=== PATIENT | female | born 1970 ===

== ENCOUNTER 2016-07-19 16:47 | Emergency (ER) | payer MEDICAID ==
[2016-07-19 17:17] VITALS: RESP 18; TEMP 98.3; O2SAT 98
[2016-07-19] MEDS ORDERED: Tmp-Smz 800 mg-160 mg DS Tab PO STA (18:55)
[2016-07-19] MEDS ORDERED: Lidocaine 2% Inj (20ml) INFIL ONE (18:55)
--- NOTE | 2016-07-19 18:55 | C.PDOC ---
History Of Present Illness 46 y/o female presents to the ED with complains of painful swollen area to mid back for the past several days. Pt saw PMD who prescribed penicillin and motrin without relief. Pt denies fever, chills, neck pain or any other complaints. No known allergies. Time Seen by Provider: 07/19/16 18:09 Chief Complaint (Nursing): Abnormal Skin Integrity History Per: Patient Onset/Duration Of Symptoms: Days Current Symptoms Are (Timing): Still Present Location Of Injury: Posterior: Back Quality Of Symptoms: Painful, Swollen Severity: Moderate Recent travel outside of the [place]: No Past Medical History Reviewed: Historical Data, Nursing Documentation, Vital Signs Vital Signs: Last Vital Signs Temp 98.3 F 07/19/16 17:13 Pulse 85 07/19/16 20:27 Resp 18 07/19/16 20:27 BP 128/72 07/19/16 20:27 Pulse Ox 98 07/19/16 20:27 - Medical History PMH: Arthritis, Hypercholesterolemia - [facility] Procedures OTHER SKIN & SUBQ I D (10/02/12) TETANUS TOXOID ADMINIST (10/02/12) Family History: States: Unknown Family Hx - Social History Hx Tobacco Use: No Hx Alcohol Use: No Hx Substance Use: No - Immunization History Hx Tetanus Toxoid Vaccination: No Hx Influenza Vaccination: No Hx Pneumococcal Vaccination: No Review Of Systems Except As Marked, All Systems Reviewed And Found Negative. Constitutional: Negative for: Fever, Chills Musculoskeletal: Negative for: Neck Pain Skin: Positive for: Other (painful, swollen area to mid back) Physical Exam - Physical Exam Appears: Non-toxic, No Acute Distress Skin: Warm, Dry, No Rash, Other (2x1 cm area of swelling and erythema to left thoracic back, fluctuant. ) Head: Atraumatic, Normacephalic Eye(s): bilateral: Normal Inspection Oral Mucosa: Moist Neck: Normal ROM, Supple Cardiovascular: Rhythm Regular Respiratory: Normal Breath Sounds, No Rales, No Rhonchi, No Wheezing Back: No Vertebral Tenderness, No Paraspinal Tenderness Extremity: Bilateral: Atraumatic Neurological/Psych: Oriented x3, Normal Motor, Normal Sensation Gait: Steady ED Course And Treatment O2 Sat by Pulse Oximetry: 98 (on room air) Pulse Ox Interpretation: Normal - Incision & Drainage Of Abscess Anesthesia: Lidocaine 2% Prep Used: Sterile Water Procedure: Incised W/Scalpel Blade#: (11), Drained Pus, Irrigated Cavity W/ Saline, Probed To Break Up Loculations, Packed W/Gauze Disposition - Disposition Referrals: Shaik Kolb MD [Staff Provider] - Disposition: HOME/ ROUTINE Disposition Time: 20:09 Condition: GOOD Additional Instructions: Come to the ED in 2 days for wound check and packing removal. Prescriptions: Sulfamethoxazole/Trimethoprim [Bactrim DS 800 mg-160 mg] 1 tab PO BID #14 tab Instructions: Abscess (GEN) - Clinical Impression Clinical Impression: Abscess - PA / INSTRUMENT CHECKER / Resident Statement MD/DO has reviewed & agrees with the documentation as recorded. - Scribe Statement The provider has reviewed the documentation as recorded by the Scribjo Chopra All medical record entries made by the Scribe were at my direction and personally dictated by me. I have reviewed the chart and agree that the record accurately reflects my personal performance of the history, physical exam, medical decision making, and the department course for this patient. I have also personally directed, reviewed, and agree with the discharge instructions and disposition.
[2016-07-19] MEDS ORDERED: Lidocaine 2% Inj (20ml) ONE (19:13)
[2016-07-19] MEDS ORDERED: Tmp-Smz 800 mg-160 mg DS Tab ONE (19:50)
[2016-07-19 20:28] VITALS: BP 128/72; PULSE 85
== END 2016-07-19 20:28 | disposition home or self-care (01) ==
LOC: C.ER 16:47
DX: L02.212 Cutaneous abscess of back [any part, except buttock and flank] (principal)

== ENCOUNTER 2016-07-21 08:04 | Emergency (ER) | payer MEDICAID ==
[2016-07-21 08:10] VITALS: BP 105/72; PULSE 101; RESP 18; TEMP 98; O2SAT 99
--- NOTE | 2016-07-21 10:46 | C.PDOC ---
History Of Present Illness 46 yr old female presents to the ER s/o I&D of an abscess to the thoracic T6 region 2 days ago. Packing was placed, PO antibiotics were given and patient was instructed to follow up win 2 days for wound check. Patient denies drainage or sign of infections from the site, denies fever, nausea, vomiting, weakness or numbness. Time Seen by Provider: 07/21/16 08:15 Chief Complaint (Nursing): Abnormal Skin Integrity History Per: Patient History/Exam Limitations: no limitations Onset/Duration Of Symptoms: Days (2) Past Medical History Reviewed: Historical Data, Nursing Documentation, Vital Signs Vital Signs: Last Vital Signs Temp 98 F 07/21/16 08:08 Pulse 101 H 07/21/16 08:08 Resp 18 07/21/16 08:08 BP 105/72 07/21/16 08:08 Pulse Ox 99 07/21/16 10:49 - Medical History PMH: Arthritis, Hypercholesterolemia - [facility] Procedures OTHER SKIN & SUBQ I D (10/02/12) TETANUS TOXOID ADMINIST (10/02/12) Family History: States: No Known Family Hx - Social History Hx Tobacco Use: No Hx Alcohol Use: No Hx Substance Use: No - Immunization History Hx Tetanus Toxoid Vaccination: No Hx Influenza Vaccination: No Hx Pneumococcal Vaccination: No Review Of Systems Except As Marked, All Systems Reviewed And Found Negative. Constitutional: Negative for: Fever Gastrointestinal: Negative for: Nausea, Vomiting Neurological: Negative for: Weakness, Numbness Physical Exam - Physical Exam Appears: Well, Non-toxic, No Acute Distress Skin: Warm, Dry, No Rash Head: Atraumatic, Normacephalic Oral Mucosa: Moist Throat: Normal, No Erythema, No Exudate Chest: Symmetrical, No Tenderness Cardiovascular: Rhythm Regular, No Murmur Respiratory: Normal Breath Sounds, No Rales, No Rhonchi, No Wheezing Extremity: Normal ROM, No Swelling Neurological/Psych: Oriented x3, Normal Speech, Normal Motor ED Course And Treatment O2 Sat by Pulse Oximetry: 99 Progress Note: Packing was removed. Wound looks clean and well healing and bandage was placed. Patient is instructed to follow up with PMD in 2-3 days for check up. Disposition - Disposition Referrals: Marizol Levine, [Non-Staff] - Disposition: HOME/ ROUTINE Disposition Time: 08:20 Condition: GOOD Additional Instructions: Thank you for letting us take care of you today. Your provider was Dr. Hermosillo. You were treated for a wound check. The emergency medical care you received today was directed at your acute symptoms. If you were prescribed any medication, please fill it and take as directed. It may take several days for your symptoms to resolve. Return to the Emergency Department if your symptoms worsen, do not improve, or if you have any other problems. Please contact your doctor or call one of the physicians/clinics you have been referred to that are listed on the Patient Visit Information form that is included in your discharge packet. Bring any paperwork you were given at discharge with you along with any medications you are taking to your follow up visit. Our treatment cannot replace ongoing medical care by a primary care provider (PCP) outside of the emergency department. Thank you for allowing the [facility] team to be part of your care today. Keep area clean and dry at all times. Continue taking the antibiotics as prescribed. Follow up with your doctor in 2-3 days to be re-evaluated. Instructions: Abscess (ED) - Clinical Impression Clinical Impression: Abscess - Scribe Statement The provider has reviewed the documentation as recorded by the Nixonibe Marlee Mcclendon Provider Attestation: All medical record entries made by the Cain were at my direction and personally dictated by me. I have reviewed the chart and agree that the record accurately reflects my personal performance of the history, physical exam, medical decision making, and the department course for this patient. I have also personally directed, reviewed, and agree with the discharge instructions and disposition.
== END 2016-07-21 08:31 | disposition home or self-care (01) ==
LOC: C.ER 08:04
DX: Z48.00 Encounter for change or removal of nonsurgical wound dressing (principal)

== ENCOUNTER 2017-07-17 18:06 | Emergency (ER) | payer MEDICAID ==
[2017-07-17 18:30] VITALS: BP 117/78; PULSE 65; RESP 18; TEMP 98; O2SAT 100
[2017-07-17] MEDS ORDERED: Lidocaine 1% Inj (20ml) INFIL STA (19:21)
[2017-07-17] MEDS ORDERED: Tmp-Smz 800 mg-160 mg DS Tab PO STA (19:21)
--- NOTE | 2017-07-17 19:24 | C.PDOC ---
History Of Present Illness 47 year old female presents to the ED with complains of painful swollen area to mid back for the past week. She had similar mass one year ago which needed drainage. Patient denies fever, chills, neck pain or any other complaints. No known allergies. Time Seen by Provider: 07/17/17 19:19 Chief Complaint (Nursing): Abnormal Skin Integrity History Per: Patient History/Exam Limitations: no limitations Onset/Duration Of Symptoms: Days Current Symptoms Are (Timing): Still Present Location Of Injury: Left: Back Quality Of Symptoms: Painful, Swollen Recent travel outside of the [place]: No Additional History Per: Patient Past Medical History Reviewed: Historical Data, Nursing Documentation, Vital Signs Vital Signs: Last Vital Signs Temp 98 F 07/17/17 18:26 Pulse 65 07/17/17 18:26 Resp 18 07/17/17 18:26 BP 117/78 07/17/17 18:26 Pulse Ox 100 07/17/17 20:05 - Medical History PMH: Arthritis, Hypercholesterolemia Denies: Chronic Kidney Disease Surgical History: No Surg Hx - [facility] Procedures OTHER SKIN & SUBQ I D (10/02/12) TETANUS TOXOID ADMINIST (10/02/12) Family History: States: Unknown Family Hx - Social History Hx Tobacco Use: No Hx Alcohol Use: No Hx Substance Use: No - Immunization History Hx Tetanus Toxoid Vaccination: No Hx Influenza Vaccination: No Hx Pneumococcal Vaccination: No Review Of Systems Constitutional: Negative for: Fever, Chills Cardiovascular: Negative for: Chest Pain Musculoskeletal: Positive for: Back Pain Skin: Negative for: Rash Neurological: Negative for: Weakness, Numbness Physical Exam - Physical Exam Appears: Non-toxic, No Acute Distress Skin: Normal Color, Warm, Dry Head: Atraumatic, Normacephalic Eye(s): bilateral: Normal Inspection Nose: No Discharge Oral Mucosa: Moist Neck: Normal ROM Chest: Symmetrical Back: Other (2x1 cm swollen, tender, erythematous fluctuant mass to left mid thoracic back) Extremity: Normal ROM, No Tenderness, No Swelling Neurological/Psych: Oriented x3, Normal Speech Gait: Steady ED Course And Treatment O2 Sat by Pulse Oximetry: 100 (ON RA) Pulse Ox Interpretation: Normal - Incision & Drainage Of Abscess Anesthesia: Lidocaine 1% Used During Procedure: Continuous Pulse Oximetry Prep Used: Sterile Water, Betadine Procedure: Incised W/Scalpel Blade#: (11), Drained Pus, Irrigated Cavity W/ Saline, Packed W/Gauze (1/2 inch), Cultures Obtained And Sent To Lab Medical Decision Making Medical Decision Making: Back abscess Plan: * I&D * Bactrim 1 tab DS Patient tolerated procedure well. Sterile island adhesive dressing applied. Patient instructed on wound care and to return to to the ED in 2 days for wound check and packing removal. Disposition Counseled Patient/Family Regarding: Diagnosis, Need For Followup, Rx Given - Disposition Referrals: Shaik Kolb MD [Staff Provider] - Disposition: HOME/ ROUTINE Disposition Time: 20:02 Condition: GOOD Additional Instructions: Change dressing 1-2 times daily. Return to the ED in 2 days for wound check and packing removal. 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 - Scribe Statement The provider has reviewed the documentation as recorded by the Scribe Arthur Winter All medical record entries made by the Nixonibe were at my direction and personally dictated by me. I have reviewed the chart and agree that the record accurately reflects my personal performance of the history, physical exam, medical decision making, and the department course for this patient. I have also personally directed, reviewed, and agree with the discharge instructions and disposition.
[2017-07-17] MEDS ORDERED: Lidocaine Hydrochloride 5 ML INJ ONE (19:32)
[2017-07-17] MEDS ORDERED: Tmp-Smz 800 mg-160 mg DS Tab ONE (19:32)
== END 2017-07-17 20:15 | disposition home or self-care (01) ==
LOC: C.ER 18:06
DX: L02.212 Cutaneous abscess of back [any part, except buttock and flank] (principal)

== ENCOUNTER 2017-07-20 08:53 | Emergency (ER) | payer MEDICAID ==
[2017-07-20 09:14] VITALS: BP 101/70; PULSE 73; RESP 18; TEMP 98.4; O2SAT 100
--- NOTE | 2017-07-20 11:25 | C.PDOC ---
History Of Present Illness 47 y/o female presents to the ED for wound check to her mid back. Patient was seen here 4 days ago for I&D and had packing placed to the mid back wound. She denies any fever or chills. Time Seen by Provider: 07/20/17 09:42 Chief Complaint (Nursing): Wound Check History Per: Patient History/Exam Limitations: no limitations Onset/Duration Of Symptoms: Days Ago (4) Current Symptoms Are (Timing): Still Present Past Medical History Reviewed: Historical Data, Nursing Documentation, Vital Signs Vital Signs: Last Vital Signs Temp 98.4 F 07/20/17 09:13 Pulse 73 07/20/17 09:13 Resp 18 07/20/17 09:13 BP 101/70 07/20/17 09:13 Pulse Ox 100 07/20/17 09:13 - Medical History PMH: Arthritis, Hypercholesterolemia Denies: Chronic Kidney Disease Other Surgeries: Tubal ligation - [facility] Procedures OTHER SKIN & SUBQ I D (10/02/12) TETANUS TOXOID ADMINIST (10/02/12) Family History: States: Unknown Family Hx - Social History Hx Tobacco Use: No Hx Alcohol Use: No Hx Substance Use: No - Immunization History Hx Tetanus Toxoid Vaccination: No Hx Influenza Vaccination: No Hx Pneumococcal Vaccination: No Review Of Systems Except As Marked, All Systems Reviewed And Found Negative. Constitutional: Negative for: Fever, Chills Skin: Positive for: Lesions (wound to mid back) Physical Exam - Physical Exam Appears: Non-toxic, No Acute Distress Skin: Warm, Dry Back: Other (Clean 0.5 cm incision with small amount of packing in place. No erythema, drainage, or tenderness) Neurological/Psych: Oriented x3 ED Course And Treatment O2 Sat by Pulse Oximetry: 100 (RA) Pulse Ox Interpretation: Normal Medical Decision Making Medical Decision Making: Impression: visit for wound check Wound was re-packed and sterile dressing applied. Patient advised that wound is healing, and to continue with wound care instructions. Return precautions discussed. Disposition Counseled Patient/Family Regarding: Diagnosis, Need For Followup - Disposition Referrals: [facility] [Outside] Disposition: HOME/ ROUTINE Disposition Time: 10:00 Condition: STABLE Forms: General Discharge Instructions, [facility] (Wallisian) - POA Present On Arrival: None - Clinical Impression Clinical Impression: Change of dressing, Abscess, Abscess of back - Scribe Statement The provider has reviewed the documentation as recorded by the Scribe (Lizet Aranda) Provider Attestation: All medical record entries made by the Scribe were at my direction and personally dictated by me. I have reviewed the chart and agree that the record accurately reflects my personal performance of the history, physical exam, medical decision making, and the department course for this patient. I have also personally directed, reviewed, and agree with the discharge instructions and disposition.
== END 2017-07-20 10:02 | disposition home or self-care (01) ==
LOC: C.ER 08:53
DX: Z48.01 Encounter for change or removal of surgical wound dressing (principal); L02.212 Cutaneous abscess of back [any part, except buttock and flank]

== ENCOUNTER 2018-06-29 09:58 | Outpatient (CLI) | payer MEDICAID | END 2018-06-29 09:59 | disposition home or self-care (01) | LOC: C.MAMMO 09:58 | DX: Z12.31 Encounter for screening mammogram for malignant neoplasm of breast (principal) ==

== ENCOUNTER 2018-07-19 14:26 | Emergency (ER) | payer MEDICAID ==
[2018-07-19 14:44] VITALS: BP 119/80; PULSE 85; RESP 18; TEMP 98.1; O2SAT 96
[2018-07-19] MEDS ORDERED: Lidocaine 1% Inj (20ml) INFIL STA (15:01)
--- NOTE | 2018-07-19 15:12 | C.PDOC ---
History Of Present Illness Patient presents to ED c/o mid back pain, redness and swelling that has been worsening over the past 1 week. She admits to history of prior abscess in same area. She denies fever, falls/injuries, chest pain, SOB, abdominal pain. Time Seen by Provider: 07/19/18 14:46 Chief Complaint (Nursing): Abnormal Skin Integrity History Per: Patient History/Exam Limitations: no limitations Onset/Duration Of Symptoms: Days Current Symptoms Are (Timing): Still Present Quality Of Symptoms: Painful, Swollen Severity: Moderate Past Medical History Reviewed: Historical Data, Nursing Documentation, Vital Signs Vital Signs: Last Vital Signs Temp 98.1 F 07/19/18 14:40 Pulse 85 07/19/18 14:40 Resp 18 07/19/18 14:40 BP 119/80 07/19/18 14:40 Pulse Ox 96 07/19/18 14:40 - Medical History PMH: Arthritis, Hypercholesterolemia - [facility] Procedures OTHER SKIN & SUBQ I D (10/02/12) TETANUS TOXOID ADMINIST (10/02/12) Family History: States: No Known Family Hx - Social History Hx Tobacco Use: No Hx Alcohol Use: No Hx Substance Use: No - Immunization History Hx Tetanus Toxoid Vaccination: No Hx Influenza Vaccination: No Hx Pneumococcal Vaccination: No Review Of Systems Constitutional: Negative for: Fever, Chills Cardiovascular: Negative for: Chest Pain Respiratory: Negative for: Shortness of Breath Gastrointestinal: Negative for: Nausea, Vomiting, Abdominal Pain Skin: Positive for: Other (mid upper back abscess) Physical Exam - Physical Exam Appears: Well, Non-toxic, In Acute Distress (in mild pain) Skin: Other (mid upper back - approx 3cm fluctuant abscess that is TTP and mildly erythematous) Head: Normacephalic Eye(s): bilateral: Normal Inspection Cardiovascular: Rhythm Regular Respiratory: Normal Breath Sounds, No Rales, No Rhonchi, No Wheezing Gastrointestinal/Abdominal: Normal Exam, Bowel Sounds, Soft, No Tenderness Neurological/Psych: Oriented x3 ED Course And Treatment O2 Sat by Pulse Oximetry: 96 (Ra) Pulse Ox Interpretation: Normal Progress Note: Patient given PO Keflex, Bactrim. I&D done by me, wound cultures obtained- patient tolerated well. Patient given Rxs for antibiotics and pain medication. She was instructed to return to ED in 2 days for wound check and packing removal. - Incision & Drainage Of Abscess Anesthesia: Lidocaine 1% (approx 3ml local infiltration) Prep Used: Betadine Procedure: Incised W/Scalpel Blade#: (11), Drained Pus (approx 5ml), Probed To Break Up Loculations, Packed W/Gauze, Cultures Obtained And Sent To Lab Disposition Counseled Patient/Family Regarding: Diagnosis, Need For Followup, Rx Given - Disposition Referrals: Shaik Kolb MD [Staff Provider] - Disposition: HOME/ ROUTINE Disposition Time: 15:30 Condition: STABLE Additional Instructions: RETURN TO ER IN 2 DAYS FOR WOUND CHECK AND PACKING REMOVAL USE MEDICATIONS DIRECTED RETURN TO ER IF SYMPTOMS WORSEN Prescriptions: Cephalexin [Keflex] 500 mg PO BID #14 capsule Naproxen 375 mg PO BID PRN #20 tablet PRN Reason: pain Sulfamethoxazole/Trimethoprim [Bactrim DS 800 mg-160 mg] 1 tab PO BID #14 tab Instructions: Boil (DC) Forms: [employer] (Spanish) Print Language: YAKUT - Clinical Impression Clinical Impression: Abscess of back
[2018-07-19] MEDS ORDERED: Lidocaine Hydrochloride 5 ML INJ ONE (15:21)
[2018-07-19] MEDS ORDERED: Tmp-Smz 800 mg-160 mg DS Tab PO STA (15:30)
[2018-07-19] MEDS ORDERED: Tmp-Smz 800 mg-160 mg DS Tab ONE (15:43)
== END 2018-07-19 15:42 | disposition home or self-care (01) ==
LOC: C.ER 14:26
DX: L02.212 Cutaneous abscess of back [any part, except buttock and flank] (principal); E78.00 Pure hypercholesterolemia, unspecified

== ENCOUNTER 2018-07-21 11:15 | Emergency (ER) | payer MEDICAID ==
[2018-07-21 11:21] VITALS: BMI 33.1
[2018-07-21 11:24] VITALS: BP 93/62; PULSE 105; RESP 18; TEMP 97.9; O2SAT 99
[2018-07-21] MEDS ORDERED: Bacitracin 500 Units/gm Oint Foilpak UD TOP ONE (12:05)
--- NOTE | 2018-07-21 12:09 | C.PDOC ---
History Of Present Illness 48 y/o female presents to the ER for wound check. Pt was here 2 days ago for an abscess on back and was instructed to come back to ED in x2 days for wound check and packing removal. Pt notes she feels better and her pain has decreased. She has no other complaints or associated sx at this time. Chief Complaint (Nursing): Wound Check History Per: Patient History/Exam Limitations: no limitations Onset/Duration Of Symptoms: Days Ago (x2) Current Symptoms Are (Timing): Better Past Medical History Reviewed: Historical Data, Nursing Documentation, Vital Signs Vital Signs: Last Vital Signs Temp 97.9 F 07/21/18 11:21 Pulse 105 H 07/21/18 11:21 Resp 18 07/21/18 11:21 BP 93/62 L 07/21/18 11:21 Pulse Ox 99 07/21/18 11:21 - Medical History PMH: Arthritis, Hypercholesterolemia - [facility] Procedures OTHER SKIN & SUBQ I D (10/02/12) TETANUS TOXOID ADMINIST (10/02/12) Family History: States: Unknown Family Hx - Social History Hx Tobacco Use: No Hx Alcohol Use: No Hx Substance Use: No - Immunization History Hx Tetanus Toxoid Vaccination: No Hx Influenza Vaccination: No Hx Pneumococcal Vaccination: No Review Of Systems Constitutional: Positive for: Other (wound check and packing removal ). Negative for: Fever, Chills Neurological: Negative for: Weakness, Numbness Physical Exam - Physical Exam Appears: Non-toxic, No Acute Distress Skin: Warm, Dry Head: Atraumatic, Normacephalic Cardiovascular: Rhythm Regular Respiratory: Normal Breath Sounds, No Wheezing Gastrointestinal/Abdominal: Soft, No Tenderness Back: No CVA Tenderness, Other (healing wound, no surrounding erythema; nontender; no pus expressed; packing removed ) Neurological/Psych: Oriented x3, Normal Speech, Normal Cognition, Normal Motor, Normal Sensation ED Course And Treatment O2 Sat by Pulse Oximetry: 99 (RA) Pulse Ox Interpretation: Normal Medical Decision Making Medical Decision Making: Plans: Packing removed, bacitracin applied Wound culture showed no growth Disposition Counseled Patient/Family Regarding: Diagnosis, Need For Followup, Rx Given - Disposition Referrals: Shaik Kolb MD [Staff Provider] - Disposition: HOME/ ROUTINE Disposition Time: 12:06 Condition: STABLE Additional Instructions: Complete course of antibiotics continue pain meds as needed follow up with PMD in 1-2 days Return to ED if symptoms worsen Instructions: Wound Care (DC) Forms: [employer] (Indian) - Clinical Impression Clinical Impression: Encounter for wound care - PA / REFUSE COLLECTOR / Resident Statement MD/ has reviewed & agrees with the documentation as recorded. - Scribe Statement The provider has reviewed the documentation as recorded by the Cain Hickey Do All medical record entries made by the Scribe were at my direction and personally dictated by me. I have reviewed the chart and agree that the record accurately reflects my personal performance of the history, physical exam, medical decision making, and the department course for this patient. I have also personally directed, reviewed, and agree with the discharge instructions and disposition.
[2018-07-21] MEDS ORDERED: Bacitracin 500 Units/gm Oint Foilpak UD ONE (12:11)
== END 2018-07-21 12:12 | disposition home or self-care (01) ==
LOC: C.ER 11:15
DX: Z48.00 Encounter for change or removal of nonsurgical wound dressing (principal); E78.00 Pure hypercholesterolemia, unspecified